=== PATIENT | male | born 1985 | race Caucasian/White ===

== ENCOUNTER 2020-11-03 17:43 | Emergency (ER) | payer MEDICARE, MEDICAID ==
[~2020-11-03] VITALS: Ht 185.4 cm; Wt 97.7 kg
[~2020-11-03 17:43] MED LIST: NO HOME MEDS
[2020-11-03 18:13] VITALS: BP 97/62
[2020-11-03 18:46] LABS: CLARITY,URINE CLEAR (Clear); COLOR,URINE YELLOW (Yellow); GLUCOSE, URINE NEGATIVE (Neg); KETONES,URINE NEGATIVE (Neg); LEUKOCYTE ESTERASE ,URINE NEGATIVE (Neg); NITRITES, URINE NEGATIVE (Neg); OCCULT BLOOD,URINE NEGATIVE (Neg); PROTEIN,URINE NEGATIVE (Neg)
[2020-11-03 18:52] LABS: UA COLLECTION TYPE CLN CATCH MIDSTREAM
== END 2020-11-03 19:06 | disposition home or self-care (01) ==
LOC: ER 17:44
DX: N48.89 Other specified disorders of penis (principal); N45.1 Epididymitis; F12.90 Cannabis use, unspecified, uncomplicated; Z88.8 Allergy status to other drugs, medicaments and biological substances; Z72.89 Other problems related to lifestyle
CPT/HCPCS: 81003; 99283

== ENCOUNTER 2020-11-23 15:58 | Emergency (ER) | payer MEDICAID ==
[~2020-11-23] VITALS: Ht 185.4 cm; Wt 89.0 kg
[2020-11-23 16:10] VITALS: BP 112/72
[2020-11-23] MEDS ORDERED: PERM60CR19 TOP (16:23)
== END 2020-11-23 16:27 | disposition home or self-care (01) ==
LOC: ER 15:59
DX: B86 Scabies (principal); F12.90 Cannabis use, unspecified, uncomplicated; Z72.89 Other problems related to lifestyle; Z90.89 Acquired absence of other organs; Z88.5 Allergy status to narcotic agent; Z79.899 Other long term (current) drug therapy
CPT/HCPCS: 99283

== ENCOUNTER 2021-07-21 09:48 | Emergency (ER) | payer MEDICAID ==
[~2021-07-21] VITALS: Ht 185.4 cm; Wt 86.4 kg
[~2021-07-21 09:48] MED LIST changes: +PERM60CR19 TOP
[2021-07-21 09:55] VITALS: BP 121/88
[2021-07-21] MEDS ORDERED: ketorolac trometh. 30mg/ml inj. IM ONE (10:25)
[2021-07-21] MEDS ORDERED: CYCL-1 PO (10:41)
== END 2021-07-21 11:10 | disposition home or self-care (01) ==
LOC: ER 09:49
DX: S29.012A Strain of muscle and tendon of back wall of thorax, initial encounter (principal); M62.838 Other muscle spasm; M54.6 Pain in thoracic spine; F12.90 Cannabis use, unspecified, uncomplicated; Z90.89 Acquired absence of other organs; Z72.89 Other problems related to lifestyle; Z88.5 Allergy status to narcotic agent; Z79.899 Other long term (current) drug therapy; X58.XXXA Exposure to other specified factors, initial encounter; Y93.89 Activity, other specified; Y92.89 Other specified places as the place of occurrence of the external cause; Y99.8 Other external cause status
CPT/HCPCS: 96372; 99283; J1885

== ENCOUNTER 2021-08-07 19:38 | Emergency (ER) | payer MEDICAID ==
[~2021-08-07] VITALS: Ht 182.9 cm; Wt 90.0 kg
[~2021-08-07 19:38] MED LIST changes: +CYCL-1 PO
[2021-08-07 19:49] VITALS: BP 108/80
== END 2021-08-07 22:25 | disposition left against medical advice (07) ==
LOC: ER 19:40
DX: R19.7 Diarrhea, unspecified (principal); Z20.822 Contact with and (suspected) exposure to COVID-19; Z53.21 Procedure and treatment not carried out due to patient leaving prior to being seen by health care provider
CPT/HCPCS: 87635; C9803

== ENCOUNTER 2021-08-30 21:28 | Emergency (ER) | payer MEDICARE, MEDICAID ==
[~2021-08-30] VITALS: Ht 182.9 cm; Wt 90.9 kg
[2021-08-30 22:23] LABS: BASOPHILS % (AUTO) 0.4 % (0-1); EOSINOPHILS # (AUTO) 0.1 X10'3 (0-0.9); EOSINOPHILS % (AUTO) 0.5 % (0-6); HEMATOCRIT 41.3 % (42.0-52.0); HEMOGLOBIN 14.4 g/dl (14.0-17.9); LYMPHOCYTES % (AUTO) 17.9 % (21-51); MEAN CORPUSCULAR HEMOGLOBIN 33.2 PG (27.0-31.0); MEAN CORPUSCULAR HGB CONC 34.8 g/dL (33.0-36.5); MEAN CORPUSCULAR VOLUME 95.3 FL (78-98); MEAN PLATELET VOLUME 7.5 FL (7.4-10.4); MONOCYTES # (AUTO) 1.2 X10'3 (0-0.9); NEUTROPHILS # (AUTO) 7.9 X10'3 (1.8-7.7); NEUTROPHILS % (AUTO) 70.2 % (42-75); PLATELET COUNT 227 X10'3 (140-440); RED BLOOD COUNT 4.33 X10'6 (4.70-6.10); WHITE BLOOD COUNT 11.2 X10'3 (4.5-11.0)
[2021-08-30 22:42] LABS: ALANINE AMINOTRANSFERASE 23 U/L (12-78); ALBUMIN 3.5 G/DL (3.4-5.0); ALKALINE PHOSPHATASE 101 IU/L (46-116); ANION GAP 6 (8-16); ASPARTATE AMINO TRANSFERASE 13 U/L (10-37); BILIRUBIN,TOTAL 0.4 MG/DL (0.1-1.0); BLOOD UREA NITROGEN 11 MG/DL (7-18); BUN/CREATININE RATIO 12.6 (5.4-32.0); CALCIUM 8.7 MG/DL (8.5-10.1); CHLORIDE 101 MMOL/L (99-107); CREATININE 0.87 MG/DL (0.60-1.10); GLUCOSE 137 MG/DL (70-104); MAGNESIUM 1.9 MG/DL (1.5-2.4); POTASSIUM 3.8 MMOL/L (3.5-5.1); SODIUM 136 MMOL/L (135-145); TOTAL CARBON DIOXIDE 29.3 MMOL/L (24-32); TOTAL PROTEIN 6.9 G/DL (6.4-8.2); eGFR > 90 ML/MIN
[2021-08-30] MEDS ORDERED: vancomycin/NS 1 GM ADD-VANTAGE 250 ML IV ONE (22:50)
[2021-08-30] MEDS ORDERED: cefepime 1GM/NS ADD-VANTAGE 100 ML IV ONE (22:50)
[2021-08-31] MEDS ORDERED: CLIN300C71 PO (02:08)
[2021-08-31 02:25] VITALS: BP 103/65
== END 2021-08-31 02:39 | disposition left against medical advice (07) ==
LOC: ER 21:29
DX: L03.113 Cellulitis of right upper limb (principal); I89.1 Lymphangitis; A41.9 Sepsis, unspecified organism; M79.641 Pain in right hand; F12.90 Cannabis use, unspecified, uncomplicated; Z72.89 Other problems related to lifestyle; Z90.89 Acquired absence of other organs; Z88.5 Allergy status to narcotic agent; Z79.2 Long term (current) use of antibiotics; Z79.899 Other long term (current) drug therapy
CPT/HCPCS: 36415; 73130; 80053; 83605; 83735; 84145; 85025; 87040; 96365; 96366; 96368; 99284; J0692; J3370

== ENCOUNTER 2022-04-11 15:01 | Emergency (ER) | payer MEDICARE, MEDICAID ==
[~2022-04-11 15:01] MED LIST changes: +POLY119P2 PO
== END 2022-04-11 18:01 | disposition left against medical advice (07) ==
LOC: ER 15:02
DX: K46.9 Unspecified abdominal hernia without obstruction or gangrene (principal); Z53.21 Procedure and treatment not carried out due to patient leaving prior to being seen by health care provider

== ENCOUNTER 2022-04-19 01:21 | Emergency (ER) | payer MEDICARE, MEDICAID ==
[~2022-04-19] VITALS: Ht 185.4 cm; Wt 90.9 kg
[2022-04-19] MEDS ORDERED: PENI-88 PO (08:06)
[2022-04-19 08:26] VITALS: BP 123/57
== END 2022-04-19 08:28 | disposition home or self-care (01) ==
LOC: ER 01:22
DX: J02.9 Acute pharyngitis, unspecified (principal); F17.200 Nicotine dependence, unspecified, uncomplicated; Z88.5 Allergy status to narcotic agent; Z79.899 Other long term (current) drug therapy
CPT/HCPCS: 99283

== ENCOUNTER 2022-08-02 09:45 | Emergency (ER) | payer MEDICAID, OTHER ==
[~2022-08-02] VITALS: Ht 185.4 cm; Wt 86.4 kg
[2022-08-02 10:08] VITALS: BP 138/84
[2022-08-02] MEDS ORDERED: HYDROcodone/acetaminophen 5mg/325mg tablet PO ONE (10:25)
== END 2022-08-02 10:38 | disposition home or self-care (01) ==
LOC: ER 09:45
DX: K40.91 Unilateral inguinal hernia, without obstruction or gangrene, recurrent (principal); Z88.5 Allergy status to narcotic agent; Z79.899 Other long term (current) drug therapy; Z79.1 Long term (current) use of non-steroidal anti-inflammatories (NSAID)
CPT/HCPCS: 99284